=== PATIENT | female | born 1965 | race Caucasian/White ===

== ENCOUNTER 2021-09-01 11:11 | Outpatient (CLI) | payer SELFPAY ==
--- NOTE | 2021-09-01 11:14 | BI_ITS ---
MAMMOGRAPHY - BILATERAL SCREENING REASON FOR EXAM: Female, 56 years old. Routine annual screening examination. PERTINENT HISTORY: Non-contributory. TECHNIQUE: Digital bilateral breast poonam (3D mammographic acquisition) in the CC and MLO projections. 2-D mediolateral oblique (MLO) and craniocaudad (CC) views of both breasts were obtained. CAD: Full Field Digital Mammography with Computer Added Detection was performed. COMPARISON: No comparison mammograms available at this time. If any prior films become available, an addendum to this report can be generated. FINDINGS: Breast Composition: The breasts are extremely dense, which lowers the sensitivity of mammography. There are no dominant masses or suspicious calcifications. Small benign-appearing bilateral axillary lymph nodes. No other significant abnormalities are identified. BI/SCRN MAMM (CAD)W/POONAM BILAT IMPRESSION: Negative screening mammogram. Yearly followup mammogram recommended. (A) ASSESSMENT CATEGORY: BIRADS Category 2: Benign. A letter regarding these results will be sent to the patient by the facility within 30 days. Approximately 10% of breast cancers are not detected by mammography. A normal mammogram should not delay biopsy of a clinically suspicious abnormality. [id number] Electronically Signed: Doc Sena MD at 13:00 EDT ,
== END 2021-09-01 23:59 | disposition home or self-care (01) ==
LOC: OPBI 11:13
PROVIDERS: Referring Provider Obstetrics & Gynecology; Visit Provider Obstetrics & Gynecology
DX: Z12.31 Encounter for screening mammogram for malignant neoplasm of breast (principal)
CPT/HCPCS: 77063; 77067

== ENCOUNTER → 2022-10-26 | Outpatient (CLI) | payer SELFPAY ==
--- NOTE | 2022-10-26 13:45 | MRI_ITS ---
STUDY: MR PELVIS WITH T WITHOUT CONTRAST REASON FOR EXAM: Female, 57 years old. URETHRAL DIVERTICULA TECHNIQUE: Standardized fat and water weighted pulse sequences were obtained in all 3 orthogonal planes, pre-and post contrast administration. 12ml Clariscan via IV was administered for the contrast portion of the examination. COMPARISON: None. FINDINGS: Normal urinary bladder. The urethra is normal in appearance without solid or cystic mass. No fluid-filled outpouching/diverticulum identified. No dilated small bowel. No colon wall thickening demonstrated. There is no pelvic fluid. There is no pelvic mass lesion or lymphadenopathy. Uterus is normal in appearance with length measuring 8.9 cm. No endometrial mass. The bilateral adnexa are grossly unremarkable without demonstrable mass. Normal visualized pelvic arteries. No bone marrow edema. Normal abdominal wall. MRI/Pelvis W/WO Contrast IMPRESSION: Normal unenhanced and enhanced MRI of the pelvis. No demonstrable urethral diverticulum. Electronically Signed: Deny Boyce (Brooks), at 7:45 EDT Reading Location ID and State: / [place] , Service support ,
== END | disposition home or self-care (01) ==
LOC: MRI 13:11
PROVIDERS: PCP Family Medicine; Referring Provider Urology; Visit Provider Urology
DX: N36.1 Urethral diverticulum (principal)
CPT/HCPCS: 72197; A9575

== ENCOUNTER 2022-12-24 08:29 | Observation (INO) | payer SELFPAY ==
--- NOTE | 2022-12-20 09:10 | EKG12_ITS ---
Test Reason : PRE OP Blood Pressure : / mmHG Vent. Rate : 058 BPM Atrial Rate : 058 BPM P-R Int : 138 ms QRS Dur : 088 ms QT Int : 448 ms P-R-T Axes : 044 -26 024 degrees QTc Int : 439 ms Sinus bradycardia Possible Left atrial enlargement Borderline ECG Confirmed by SYDNI BELCHER, LETHA ([id number]), market editor CHADD CRANE ([id number]) on 12/20/2022 12:13:16 PM Referred By: Ladonna Martínez Confirmed By:LETHA TROY MD
[2022-12-20 10:12] LABS: Hemoglobin 13.3 g/dL (12.0-15.0); Mean Corp Hgb Conc 31.7 g/dL (32-36); Mean Corpuscular Hgb 29.5 pg (27.0-32.0); Mean Corpuscular Volume 93.1 fL (81-99); Mean Platelet Vol. 11.4 fl (6.2-12.0); Platelet Count 241 K/mm3 (150-450); RBC Distribution Width CV 14.2 % (11.6-14.6); RBC Distribution Width SD 48.3 fl (35.1-43.9); Red Blood Count 4.51 M/mm3 (4.2-5.4); White Blood Count 5.2 K/mm3 (4.4-11.0)
[2022-12-20 10:27] LABS: Internal QC Validated? YES +Cl - CLEAR BKGD; Pregnancy, Urine Negative Negative
[2022-12-20 10:48] LABS: Magnesium 2.3 mg/dL (1.6-2.6)
[2022-12-24] VITALS (12 sets, daily range): BP systolic 82–134; BP diastolic 58–87; PULSE 65–78; RESP 12–18; TEMP 36.1–36.7; O2SAT 97–100; BMI 24.0
[2022-12-24 06:07] LABS: Internal QC Validated? YES +Cl - CLEAR BKGD; Pregnancy, Urine Negative Negative
[2022-12-24] MEDS: Lactated Ringers 1,000 ML 40 ML IV ×3 (06:10→11:15)
[2022-12-24] MEDS: Magnesium 1 GM over 15 mins IV (06:11)
[2022-12-24] MEDS: Acetaminophen 500 MG Tablet 1000 MG PO (06:12)
[2022-12-24] MEDS: Celecoxib 200 MG Capsule 400 MG PO (06:12)
[2022-12-24] MEDS: dexAMETHasone 4 MG/ML Vial 8 MG IV (06:13)
[2022-12-24] MEDS: Gabapentin 600 MG Tablet PO (06:13)
--- NOTE | 2022-12-24 07:15 | PCM.HP.BLA ---
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: No Is patient in pain?: No Allergies albuterol Adverse Reaction (Verified 12/15/22 08:51) Otherdemeral Adverse Reaction (Uncoded 12/10/22 10:04) Other Medications cholecalciferol (vitamin D3) 50 mcg (2,000 unit) capsule 50 mcg PO DAILY 09/22/22 [History Confirmed 12/15/22] coenzyme Q10 75 mg capsule (Ultra CoQ10) 75 mg PO DAILY 09/22/22 [History Confirmed 12/15/22] lactobacillus combination no.9 4 billion cell capsule (Adult 50 Plus Probiotic) 4,000 mmu cells PO DAILY 09/22/22 [History Confirmed 12/15/22] estradiol 0.01% (0.1 mg/gram) vaginal cream vaginal 12/10/22 [History Confirmed 12/15/22] Post menopausal: No Patient : No : No PFSH Medical History Anemia Migraine headache Non-smoker Wears glasses Surgical History S/P colonoscopy with polypectomy [place] teeth extracted Family History Mother Colon cancerFather Diabetes Social History Smoking Status: Never smoker alcohol intake: never substance use type: does not use caffeine: Yes what type of physical activity do you participate in: none additional social history: - Mo HPI pre op, appt albertina/Concepcion after Details: DAPHNEY CARTER is a 57 year old who presents for pre-op exam.She has the complaint of vaginal prolapse symptoms. She has had 5 vaginal deliveries. She feels uncomfortable at times when she is active. She does not have bladder incontinence at this time. She does strain some when having a bowel movement. She and her are interested in surgical and non-surgical options. She is 57 and still having monthly menses. Her twin sister is also still having menses. MRI showed a 8.9 cm uterus and normal ovaries. She had a normal EMB. She wants to keep her ovaries in place unless there is any masses or lesions seen. History 5 Elective abortions Hx Para 5 Spontaneous abortions Hx # Term Pregnancies Ectopic pregnancies Hx # Pregnancies Multiple births # of living children Past Pregnancies Del. Date Name GA/Weeks Outcome Route Bth Weight Gen Labor Lgth Anesthesia Del Locatn Provider FOB Unknown Janeth Unknown Jose R Unknown Gordan Unknown Guillermo Unknown Leighann ROS Const ROS Unobtainable: All systems reviewed & are unremarkable except as noted in H Resp Resp: Reports system reviewed and no additional complaints, except as documented; Denies cough GI GI: Reports as per HPI Psych Psych: Reports system reviewed and no additional complaints, except as documented Exam Const General: cooperative, healthy appearing, comfortable and no acute distress Resp Effort & Inspection: normal respiratory effort Skin General: no rashes or lesions noted Psych Appearance: grossly normal Speech and Movement: speech and movement normal Coding Level of Care Code Off vis,est,level 4 Diagnoses Abnormal uterine bleeding N93.9 Cystocele Pelvic organ prolapse quantification stage 2 rectocele N81.6 Assessment and Plan Assessment and Plan (1) Abnormal uterine bleeding: Status: Acute (2) Cystocele: Status: Acute (3) Pelvic organ prolapse quantification stage 2 rectocele: Status: Acute Plan After discussing the patient's diagnosis and treatment plan options, patient wishes to proceed with surgical management. I have discussed with the patient the risks, benefits, and alternatives of the procedure which include but are not limited to risks of anesthesia, bleeding, infection, possible damage to bowel, bladder, or surrounding vasculature which could lead to additional surgery to evaluate any complications. Patient agrees to procedure and wishes to proceed. ACOG/uptodate references given for additional information regarding procedure. plan for total vaginal hysterectomy (keep ovaries if possible). She will have repair with Dr. Javier following the hysterectomy.
--- NOTE | 2022-12-24 07:18 | DCINST_ITS ---
Discharge Instructions Diet Discharge Diet: No restrictions Activity Discharge Activity: Return to Normal Activity, May Not Drive (while taking narcotic pain medications.) and May Shower May resume sexual activity in: 6-8 weeks Dressing / Incision Call your doctor if your incision/area has: Continuous Slow Oozing, Sudden Increased Bleeding, Increased Pain/ Swelling, Increased Redness and Foul Smelling Discharge Call your doctor if you observe: Fever of 101 or Higher, Inability to urinate, Inability to have a bowel movement and Using more than 1 pad per hour Follow Up Care Please Follow Up With: Ladonna Martínez DO Test Results: Test results from this visit will be discussed in further detail at your follow- up appointment, if applicable. Discharge Plan Admission Attending Provider: Ladonna Martínez Primary Care Provider: Wayne Valdes Consulting Providers: Farzana Javier Discharge Orders/Prescriptions Prescriptions: No Action Adult 50 Plus Probiotic 4 billion cell capsule 4,000 mmu cells PO DAILY Rx Instructions: administer with a meal Ultra CoQ10 75 mg capsule 75 mg PO DAILY cholecalciferol (vitamin D3) 50 mcg (2,000 unit) capsule 50 mcg PO DAILY estradiol 0.01 % (0.1 mg/gram) cream VAGINAL Patient Comments: insert 1 gram vaginally three times a week BEFORE BEDTIME Other Ambulatory Orders: 12 Lead EKG (Routine) Timeframe: 20221220 [facility] Ordered By: Dr. Ladonna Martínez Referrals / Follow Up: Wayne Valdes DO [Primary Care Provider] - Disposition Disposition (needs filled in before D/C Order can be placed): Home, Self Care
--- NOTE | 2022-12-24 07:30 | HYST_PTH ---
PATIENT: DAPHNEY CARTER LOC: MS3 U#:[id number] AGE/SX: 57/F ROOM: [facility] [place] RE12/24/[address]: Dr. Ladonna Martínez DO : 1965 BED: 1 DIS: 12/25/2022 SPEC #: [id number] RECD: 12/24/22 11:34 STATUS: LUCIANA THOMAS #: [id number] ALEX: 12/24/22 07:[address]: Ladonna Martínez DEPT: SURGICAL PATHOLOGY RECD BY: Olya Silva ENTERED: 12/24/22 11:59 SP TYPE: HYSTERECT OTHR DR: DO Dr. Farzana Shen MD Tissues: Uterus, NOS Procedures: Surgery Specimen Level V HEADER OPERATION: ERAS, total vaginal hysterectomy, right salpingectomy, cysto PRE-OP DIAGNOSIS: Abnormal uterine bleeding, cystocele, pelvic organ prolapse TISSUE SUBMITTED: Uterus, cervix, right fallopian tube MICROSCOPIC DIAGNOSIS Uterus, cervix, right fallopian tube, vaginal hysterectomy and right salpingectomy: Cervix - chronic inflammation. Endometrium - proliferative endometrium. Myometrium - adenomyosis. Right fallopian tube - no pathologic diagnosis. SJ:fatuma 12/27/2022 MICROSCOPIC DESCRIPTION Slides are reviewed. GROSS DESCRIPTION Received in fixative is one container labeled with the patient's name and designated uterus, cervix, right fallopian tube. The specimen consists of a partially opened hysterectomy specimen consisting of uterus with cervix and detached fallopian tube. The uterus with cervix weighs 135 gm and measures 10.0 x 6.0 x 4.0 cm. The serosal surface is ragland, glistening. The ectocervical mucosa is unremarkable. The external os is oval and patulous in contour. The endocervical canal measures 3.5 cm in length and the endocervical mucosa is ragland, glistening and unremarkable. The triangular endometrial cavity measures 5.0 cm in length and up to 2.5 cm in width. The endometrium is ragland, glistening without any mass lesion and measures <0.1 cm in thickness. Sections of the uterine wall reveal focally ill-defined nodular masses suspicious for adenomyosis. The uterine wall measures up to 2.5 cm in thickness. The detached fallopian tube identified as right fallopian tube measures 3.5 cm in length and 0.6 cm in diameter. The fimbrial end is identified. Sections reveal unremarkable cut surfaces. Aging Department Supervisor sections are submitted in seven cassettes as follows: 1 - anterior cervix, 2 - posterior cervix, 3 & 4 - anterior uterine wall, 5 & 6 - posterior uterine wall, 7 - fallopian tube identified as right fallopian tube. / FLAQUITO:fatuma 12/24/2022 TC:5 CPT: 46726
[2022-12-24] MEDS: Cefotetan 2 GM in 0.9% NS 100 ML IV (07:38)
--- NOTE | 2022-12-24 08:23 | OP.PCM_ITS ---
Report of Operation Date of Procedure: 12/24/22 Pre-Operative Diagnosis: Incomplete uterovaginal prolapse Post-Operative Diagnosis: Same, intraoperative cystotomy Surgery/Procedure Performed:: Repair cystotomy, anterior and posterior repair, bilateral sacrospinous ligament fixation, cystoscopy with bilateral ureteral catheterization Surgeon: Farzana Javier Type of Anesthesia: General Admit VTE Documentation VTE Present on Admission: Yes VTE Mechan Device Prophylaxis: SCD's VTE Pharm Prophylaxis ordered?: Yes
--- NOTE | 2022-12-24 08:23 | PCM.OPRPT ---
Problems Associated Problem List Diagnoses (1) Cystocele: (2) Pelvic organ prolapse quantification stage 2 rectocele: Report of Operation Date of Procedure: 12/24/22 Pre-Operative Diagnosis: Incomplete uterovaginal prolapse Post-Operative Diagnosis: Same, intraoperative cystotomy Surgery/Procedure Performed:: posterior repair, cystoscopy with bilateral ureteral catheterization Surgeon: Farzana Javier Type of Anesthesia: General Description of Procedure: The patient is a 57-year-old female with pelvic organ prolapse who presents for surgical intervention for this as well as abnormal uterine bleeding. Informed consent was obtained. The patient was taken to the operating room and placed on the operating room table. Anesthesia monitored the head, neck, airway, IV access and vital signs throughout the case. Once anesthesia was appropriately administered, the patient was placed into exaggerated dorsolithotomy and Trendelenburg position. A Jean Baptiste catheter was inserted and the balloon was inflated with 10 cc of normal saline. At this time Dr. Pérez proceeded with her portion of the procedure with a vaginal hysterectomy. There was an inadvertent midline cystotomy approximately 1 cm in length. At the time I arrived, Dr. Pérez had already isolated the injury and sutured it in a 2 layer closure. The cuff remained open. I removed the Jean Baptiste with balloon deflation and inserted a cystoscope through the urethra under direct visualization into the urinary bladder. The cystotomy was visible in the midline just beyond the trigone closer to the right side but still in the midline. A 5 Greek whistle-tip catheter was used to gently cannulate each ureteral orifice and it was advanced to 20 cm on both sides without evidence of ureteral involvement in the injury. There were no other injuries identified at this time. The cystoscope was removed and the Jean Baptiste catheter was replaced. I imbricated her repair with a 2-0 Vicryl running suture. At this time the cuff line was closed per Dr. Pérez. Attention was then turned towards the prolapse repair. The posterior submucosa was injected with vasopressin for hydrostatic dissection and hemostatic control. A midline incision was made and sharp and blunt dissection was performed bilaterally until the rectovaginal fascia was identified. An attempt was made to dissect towards the ischial spines, but her support was very good on both sides and there was no evidence of remaining vault prolapse. She began to have more bleeding and the decision was made to abort sacrospinous ligament fixation. I continued on with the repair of the rectocele with a 2 layer closure with interrupted 2-0 Vicryl suture. A perineoplasty was performed as part of this repair. After the fascia was brought together, the mucosa was closed with running interlocking 2-0 Vicryl. The Jean Baptiste catheter was then removed and the cystourethroscopy was performed. The left ureteral orifice was then intubated with a 5 Greek whistle-tip catheter and advanced easily to 20 cm. On the right side the whistle-tip would no longer advance beyond 1 cm. The right sided cuff sutures were taken down and the cystoscopy was repeated with easy advancement of the whistle-tip through the right ureter into the renal pelvis. The whistle-tip catheter was then left in place. Good output was visualized from the end of the whistle-tip catheter. At this time the cuff closure was performed with the Jean Baptiste catheter and the whistle-tip catheter both in place. The whistle-tip catheter was easily advanced and retreated without evidence of tension and fluid was seen from the end of the catheter. Following closure of the cuff, the whistle-tip catheter was removed, and the vagina was packed with Premarin cream and vaginal packing. Grafts/Implants Used: none Admit VTE Documentation VTE Present on Admission: Yes VTE Mechan Device Prophylaxis: SCD's VTE Pharm Prophylaxis ordered?: Yes
--- NOTE | 2022-12-24 08:31 | DCINST_ITS ---
Discharge Instructions Diet Discharge Diet: No restrictions Activity Discharge Activity: May Shower (No tub bathing, hot tubs or swimming) May resume sexual activity in: 8 weeks Lifting Restrictions: No lifting over 5 pounds Additional Activity Instructions:: No strenuous activity, exercise, vacuuming Dressing / Incision Call your doctor if your incision/area has: Continuous Slow Oozing, Sudden Increased Bleeding, Increased Pain/ Swelling, Increased Redness and Foul Smelling Discharge Call your doctor if you observe: Fever of 101 or Higher, Inability to urinate, Inability to have a bowel movement and Using more than 1 pad per hour Follow Up Care Please Follow Up With: Ladonna Martínez DO When: With Dr. Javier, the office will call to make follow-up arrangements Test Results: Test results from this visit will be discussed in further detail at your follow- up appointment, if applicable. Discharge Plan Admission Admit Date/Time: 12/24/22 08:29 Attending Provider: Ladonna Martínez Primary Care Provider: Wayne Valdes Consulting Providers: Farzana Javier Instructions Patient Instructions: Urinary Catheter Bag Empty Clean, Jean Baptiste Catheter Female Ch Discharge Orders/Prescriptions Prescriptions: New oxycodone-acetaminophen [Percocet] 5-325 mg tablet 1 tab PO Q8H PRN (Reason: pain) 7 Days Qty: 20 0RF cephalexin [cephalexin] 500 mg capsule 500 mg PO Q12 3 Days Qty: 6 0RF naproxen 500 mg tablet 500 mg PO BID PRN (Reason: pain) Qty: 30 0RF Rx Instructions: take for pain that is 1-6/10 phenazopyridine [Pyridium] 200 mg tablet 200 mg PO TID PRN PRN (Reason: Bladder Spasms) 7 Days Qty: 30 1RF Continued Adult 50 Plus Probiotic 4 billion cell capsule 4,000 mmu cells PO DAILY Rx Instructions: administer with a meal Ultra CoQ10 75 mg capsule 75 mg PO DAILY cholecalciferol (vitamin D3) 50 mcg (2,000 unit) capsule 50 mcg PO DAILY estradiol 0.01 % (0.1 mg/gram) cream VAGINAL Patient Comments: insert 1 gram vaginally three times a week BEFORE BEDTIME Other Ambulatory Orders: 12 Lead EKG (Routine) Timeframe: 20221220 [facility] Ordered By: Dr. Ladonna Martínez Referrals / Follow Up: Wayne Valdes DO [Primary Care Provider] - Disposition Disposition (needs filled in before D/C Order can be placed): Home, Self Care
[2022-12-24] MEDS: Bupivacaine 0.25% 30 ML Vial (08:53)
[2022-12-24] MEDS: Estrogens,Conj. 1 Tube 1 DOSE (10:15)
[2022-12-24] MEDS: Ondansetron 4 MG/2 ML Vial IV ×2 (10:16→16:01)
[2022-12-24 11:12] LABS: Hemoglobin 13.3 g/dL (12.0-15.0); Mean Corp Hgb Conc 31.7 g/dL (32-36); Mean Corpuscular Hgb 29.6 pg (27.0-32.0); Mean Corpuscular Volume 93.5 fL (81-99); Mean Platelet Vol. 11.2 fl (6.2-12.0); Platelet Count 214 K/mm3 (150-450); RBC Distribution Width CV 14.4 % (11.6-14.6); RBC Distribution Width SD 49.1 fl (35.1-43.9); Red Blood Count 4.49 M/mm3 (4.2-5.4); White Blood Count 4.6 K/mm3 (4.4-11.0)
[2022-12-24 11:17] LABS: Anion Gap 9 (5-15); BUN 9 mg/dL (7-18); Calcium,Total 8.3 mg/dL (8.5-10.1); Chloride 109 mmol/L (98-107); EST Glomerular Filtration Rate 61 mL/min (>60); Est Glom Filt Rate - Afr Amer 73 mL/min (>60); Estimated Creatinine Clearance 50.73 ml/min; Glucose 174 mg/dL (74-106); Potassium 3.2 mmol/L (3.5-5.1); Sodium Level 142 mmol/L (136-145)
[2022-12-24 11:31] LABS: Bedside Glucose 181 mg/dL (74-106)
--- NOTE | 2022-12-24 11:33 | PCM.OPRPT ---
Problems Associated Problem List Diagnoses (1) Abnormal uterine bleeding: (2) Pelvic organ prolapse quantification stage 2 rectocele: Report of Operation Date of Procedure: 12/24/22 Pre-Operative Diagnosis: pelvic organ prolapse Post-Operative Diagnosis: pelvic organ prolapse Surgery/Procedure Performed:: total vaginal hysterectomy, right salpingectomy, repair of incidental cystotomy Description of Surgical Findings:: Normal uterus, cervix, fallopian tubes and ovaries, prolapsed bladder and rectocele present. Surgeon: Ladonna Martínez technical services analyst: Norma Lazo technical services analyst: Farzana Javier Type of Anesthesia: General Specimen's removed: uterus, cervix, right fallopian tube Estimated Blood Loss (mL): 100cc Description of Procedure: Patient was taken to the operating room and was placed under general anesthesia was prepped and draped in normal sterile fashion in the dorsal lithotomy position. Preoperative antibiotics and SCDs and Devine catheter was placed inside the bladder. Weighted speculum was placed in the vagina and the anterior and posterior lip of the cervix was grasped with 2 Tha clamps and circumferentially injected with dilute vasopressin. A circumferential incision was made with a scalpel and the posterior cul-de-sac was entered into sharply and a longneck speculum was placed. The anterior cul-de-sac was also dissected down and entered into sharply. At this point there was noted to be a small opening in the bladder as clear fluid returned and devine bulb was seen. The bladder was repaired first by using a 4-0 vicryl in a purse string pattern around the opening. A second imbricating layer was performed. The hysterectomy was continued by identifying the uterosacral ligaments. These were clamped cut and suture ligated bilaterally followed by the cardinal ligaments which were Clamped cut and suture ligated bilaterally with 0 Vicryl. The uterus serially descended and progressive bites were taken bilaterally up to the level of the utero-ovarian ligament bilaterally which was clamped transected and double ligated with 0 vicryl suture and 0 Vicryl free tie. Bilateral fallopian tubes and ovaries were well visualized and noted be within normal limits, however the left fa was used llopian tube was adherent to the left side wall and not removed. The right fallopian tube was grasped with a gaudencio clamp, cut and suture ligated to remove. an 0 vicryl free tie was used to creat hemostasis. Excellent hemostasis was noted. Posterior peritoneum and vaginal mucosa was run with a [address] Javier then came in and applied a 3rd layer of 4-0 vicryl to the bladder laceration. The vaginal cuff was then closed with interrupted fingure of 8, 0-vicryl suture. Excellent hemostasis was noted. Dr. Javier performed a cystoscopy and the bladder was noted to be water tight, however the right ureter was not freely flowing an whistle tip could not pass. A suture on the cuff was removed then replace and the whistle tip flowed, indicating ureteral patency. Dr. Javier then performed the remaining procedure dictated separately. . Admit VTE Documentation VTE Present on Admission: No VTE Mechan Device Prophylaxis: SCD's VTE Pharm Prophylaxis ordered?: No Multi Select Codes Urinary/Genital Urinary/Genital CPT Codes: 71108 TVH <250 gr uterus (right salpingectomy ,and cystotomy repair. )
[2022-12-24] MEDS: Cefazolin 1 GM/50 ML BAG IV ×2 (14:31→21:00)
[2022-12-24] MEDS: Dextrose 5%-Lactated Ringers 1,000 ML 100 ML IV (14:31)
[2022-12-24] MEDS: HYDROcodone Bitartrate/Apap 5/325 Tablet PO ×2 (21:00→22:21)
[2022-12-25 01:09] VITALS: BP 97/55; PULSE 72; RESP 16; TEMP 36.8; O2SAT 95
[2022-12-25] MEDS: Enoxaparin 40 MG/0.4 ML Syringe SC (04:14)
[2022-12-25] MEDS: HYDROcodone Bitartrate/Apap 5/325 Tablet PO (04:14)
[2022-12-25 04:26] VITALS: BP 96/65; PULSE 66; RESP 16; TEMP 36.4; O2SAT 96
[2022-12-25 06:58] LABS: Hematocrit 36.8 % (37-47); Hemoglobin 11.9 g/dL (12.0-15.0); Mean Corp Hgb Conc 32.3 g/dL (32-36); Mean Corpuscular Volume 92.7 fL (81-99); Mean Platelet Vol. 11.1 fl (6.2-12.0); Platelet Count 229 K/mm3 (150-450); RBC Distribution Width CV 14.6 % (11.6-14.6); Red Blood Count 3.97 M/mm3 (4.2-5.4); White Blood Count 10.1 K/mm3 (4.4-11.0)
[2022-12-25 07:36] LABS: Anion Gap 4 (5-15); BUN 6 mg/dL (7-18); BUN/Creat Ratio 9.1 RATIO (10-20); Calcium,Total 8.4 mg/dL (8.5-10.1); Chloride 111 mmol/L (98-107); Creatinine, Serum 0.66 mg/dL (0.55-1.02); EST Glomerular Filtration Rate 98 mL/min (>60); Est Glom Filt Rate - Afr Amer 119 mL/min (>60); Estimated Creatinine Clearance 76.86 ml/min; Glucose 93 mg/dL (74-106); Potassium 3.5 mmol/L (3.5-5.1); Sodium Level 141 mmol/L (136-145)
--- NOTE | 2022-12-25 08:10 | PCM.PN.OB ---
Subjective Subjective patient is sitting up in bed and appears comfortable. She states that she vomited one time last night but otherwise feels good. We discussed the bladder laceration and repair process and touched on follow up in a week with cystogram. She prefers to go home with the large devine bag and not a leg bag to avoid overfilling of the leg bag that could worsen the laceration repair. Objective Data Objective Data Vital Signs: Vital Signs Temp Pulse Resp BP Pulse Ox O2 Del Method O2 Flow Rate 97.6 F L 66 16 96/65 96 Room Air 2 12/25/22 04:12/25/22 04:12/25/22 04:12/25/22 04:12/25/22 04:12/25/22 04:12/24/22 16:12 Oxygen Flow Rate (L/min) 2 Oxygen Delivery Method Room Air Weight: 136 lb Body Mass Index (BMI) 24.0 Intake & Output: Intake and Output for Last 24 Hours 12/23/22 12/24/22 12/25/22 23:59 23:59 23:59 Intake Total 2360.33 / 2360.33 951.67 / 951.67 Output Total 3000 / 3000 1500 / 1500 Balance -639.67 / -639.67 -548.33 / -548.33 Lab / Micro Data 12/25/22 05:42 12/25/22 05:42 Labs: Laboratory Results - last 24 hr 12/24/22 10:55: WBC 4.6, RBC 4.49, Hgb 13.3, Hct 42.0, MCV 93.5, MCH 29.6, MCHC 31.7 L, RDW Std Deviation 49.1 H, RDW Coeff of Bayron 14.4, Plt Count 214, MPV 11.2, Sodium 142, Potassium 3.2 L, Chloride 109 H, Carbon Dioxide 24.0, Anion Gap 9, BUN 9, Creatinine 1.00, Estim Creat Clear Calc 50.73, Est GFR (MDRD) Af Amer 73, Est GFR (MDRD) Non-Af 61, BUN/Creatinine Ratio 9.0 L, Glucose 174 H, Calcium 8.3 L 12/24/22 11:12: POC Glucose 181 H 12/25/22 05:42: WBC 10.1, RBC 3.97 L, Hgb 11.9 L, Hct 36.8 L, MCV 92.7, MCH 30.0, MCHC 32.3, RDW Std Deviation 50.0 H, RDW Coeff of Bayron 14.6, Plt Count 229, MPV 11.1, Sodium 141, Potassium 3.5, Chloride 111 H, Carbon Dioxide 26.0, Anion Gap 4 L, BUN 6 L, Creatinine 0.66, Estim Creat Clear Calc 76.86, Est GFR (MDRD) Af Amer 119, Est GFR (MDRD) Non-Af 98, BUN/Creatinine Ratio 9.1 L, Glucose 93, Calcium 8.4 L ROS Constitutional Constitutional: Denies chills, fatigue, fever(s), poor appetite or weakness Cardiovascular Cardiovascular: Denies chest pain, dizziness, dyspnea, irregular heart rhythm, palpitations or rapid heart rate Respiratory/Chest Respiratory/Chest: Denies chest tightness, cough, dyspnea or breast pain Gastrointestinal Gastrointestinal: Denies abdominal pain, constipation or vomiting Genitourinary Genitourinary: Denies dysuria or flank pain Neurologic Neurologic: Denies abnormal movements, abnormal speech, dizziness, numbness or syncope Psychiatric Psychiatric: Denies anxiety, behavioral changes, change in appetite, confusion, depression or suicidal thoughts Physical Exam Const alert, oriented x3 and no apparent distress General Appearance: cooperative and comfortable Resp normal respiratory effort Cardio regular rate GI normal to inspection, nondistended, normoactive bowel sounds Palpation: soft Back/Spine no CVA tenderness and thoraco-lumbar ROM normal Extremity normal to inspection, no clubbing, cyanosis or edema, no calf tenderness and no pedal edema Psych mental status grossly normal, thought process normal, cooperative, affect normal, speech normal, activity/motor behavior normal, denies homicidal ideation and denies suicidal ideation Assessment & Plan (1) Cystocele: (2) Pelvic organ prolapse quantification stage 2 rectocele: PLAN: Plan patient is s/p total vaginal hysterectomy, right salpingectomy, cystotomy repair, POD 1 1. routine ERAS protocol postop care- increase ambulation, encourage oral intake and oral control of pain. scds for dvt prophylaxis, patient stable for discharge to home after sees Dr. Javier this am. They understand she is in surgery this morning.
[2022-12-25 08:23] VITALS: O2SAT 95
[2022-12-25 08:43] LABS: Bedside Glucose 72 mg/dL (74-106)
--- NOTE | 2022-12-25 09:20 | PCM.PN.GU ---
Subjective Subjective The patient is sitting up in a chair. Her nausea is significantly improved. She was having bladder spasms earlier and those are also improved. Objective Data Objective Data Vital Signs: Vital Signs Temp Pulse Resp BP Pulse Ox O2 Del Method O2 Flow Rate 97.6 F L 66 16 96/65 95 Room Air 2 12/25/22 04:26 12/25/22 04:26 12/25/22 04:12/25/22 04:12/25/22 08:23 12/25/22 08:23 12/24/22 16:12 Oxygen Flow Rate (L/min) 2 Oxygen Delivery Method Room Air Weight: 61.689 kg Body Mass Index (BMI) 24.0 Intake & Output: Intake and Output for Last 24 Hours 12/23/22 12/24/22 12/25/22 23:59 23:59 23:59 Intake Total 2360.33 / 2360.33 951.67 / 951.67 Output Total 3000 / 3000 1500 / 1500 Balance -639.67 / -639.67 -548.33 / -548.33 Lab / Micro Data 12/25/22 05:42 12/25/22 05:42 Labs: Laboratory Results - last 24 hr 12/24/22 05:56: POC Glucose 72 L 12/24/22 10:55: WBC 4.6, RBC 4.49, Hgb 13.3, Hct 42.0, MCV 93.5, MCH 29.6, MCHC 31.7 L, RDW Std Deviation 49.1 H, RDW Coeff of Bayron 14.4, Plt Count 214, MPV 11.2, Sodium 142, Potassium 3.2 L, Chloride 109 H, Carbon Dioxide 24.0, Anion Gap 9, BUN 9, Creatinine 1.00, Estim Creat Clear Calc 50.73, Est GFR (MDRD) Af Amer 73, Est GFR (MDRD) Non-Af 61, BUN/Creatinine Ratio 9.0 L, Glucose 174 H, Calcium 8.3 L 12/24/22 11:12: POC Glucose 181 H 12/25/22 05:42: WBC 10.1, RBC 3.97 L, Hgb 11.9 L, Hct 36.8 L, MCV 92.7, MCH 30.0, MCHC 32.3, RDW Std Deviation 50.0 H, RDW Coeff of Bayron 14.6, Plt Count 229, MPV 11.1, Sodium 141, Potassium 3.5, Chloride 111 H, Carbon Dioxide 26.0, Anion Gap 4 L, BUN 6 L, Creatinine 0.66, Estim Creat Clear Calc 76.86, Est GFR (MDRD) Af Amer 119, Est GFR (MDRD) Non-Af 98, BUN/Creatinine Ratio 9.1 L, Glucose 93, Calcium 8.4 L Physical Exam Narrative Alert, oriented, comfortable Jean Baptiste draining clear yellow urine SCDs in place Abdomen soft, nontender nondistended Vaginal packing was removed without incident Assessment & Plan Assessment/Plan (1) Abnormal uterine bleeding: (2) Cystocele: (3) Pelvic organ prolapse quantification stage 2 rectocele: PLAN: Plan Home with Jean Baptiste catheter to straight drain My office will make arrangements for cystogram at the end of next week with follow-up in the office
[2022-12-25 09:24] VITALS: BP 101/60; PULSE 60; RESP 18; TEMP 36.6; O2SAT 95
== END 2022-12-25 10:44 | disposition home or self-care (01) ==
LOC: SDC 10:43 → MS3 10:43
PROVIDERS: Anesthesiology; Admitting Provider Urology; PCP Family Medicine; Referring Provider Obstetrics & Gynecology; Visit Provider Obstetrics & Gynecology
PROC: (CPT 58260; principal; 2022-12-24 07:10)
DX: N81.2 Incomplete uterovaginal prolapse (principal); N93.9 Abnormal uterine and vaginal bleeding, unspecified; N32.89 Other specified disorders of bladder; N99.71 Accidental puncture and laceration of a genitourinary system organ or structure during a genitourinary system procedure; R11.0 Nausea; Y92.234 Operating room of hospital as the place of occurrence of the external cause; Z79.899 Other long term (current) drug therapy
CPT/HCPCS: 58262; 52005; 00944; 57250; 51860; 36415; 80048; 81025; 82962; 83735; 85027; 86850; 86900; 86901; 88307; 93005; 94668; 96361; 96365; 96366; 96372; 96375; 99221; J7120; C1758; G0378; J2405; J3475; Q9968

== ENCOUNTER → 2023-01-03 | Outpatient (CLI) | payer SELFPAY ==
--- NOTE | 2023-01-03 11:41 | RAD_ITS ---
CLINICAL HISTORY: Female, 57 years old. Bladder injury. PROCEDURE: Cystogram. FLUOROSCOPY TIME (if supplied): (34 seconds) minutes/seconds. 8.64 mGy. 5 images were obtained. 175 mL of contrast installed into the bladder in a retrograde fashion through the indwelling Jean Baptiste catheter.. The radiologist installed the contrast into the bladder. TECHNIQUE: (All elements of maximal sterile barrier technique followed, including US elements as applicable) The bladder was filled with contrast. A postvoid image was obtained. No evidence of bladder leak. RAD/Cystography min 3 Views IMPRESSION: No evidence of bladder leak. Electronically Signed: Doc Sena MD at 12:31 EDT ,
== END | disposition home or self-care (01) ==
PROVIDERS: PCP Family Medicine; Referring Provider Urology; Visit Provider Urology
DX: S37.20XA Unspecified injury of bladder, initial encounter (principal); X58.XXXA Exposure to other specified factors, initial encounter
CPT/HCPCS: 51600; 74430

== ENCOUNTER → 2024-02-24 | Outpatient (CLI) | payer SELFPAY ==
--- NOTE | 2024-02-24 11:52 | BI_ITS ---
MAMMOGRAPHY - BILATERAL SCREENING REASON FOR EXAM: Female, 58 years old. Routine annual screening examination. PERTINENT HISTORY: Non-contributory. TECHNIQUE: Digital bilateral breast poonam (3D mammographic acquisition) in the CC and MLO projections. 2-D mediolateral oblique (MLO) and craniocaudad (CC) views of both breasts were obtained. CAD: Full Field Digital Mammography with Computer Added Detection was performed. COMPARISON: Comparison is made with prior study September 01, 2021. FINDINGS: Breast Composition: The breasts are heterogeneously dense, which may obscure small masses. There are no dominant masses or suspicious calcifications. No other significant abnormalities are identified. There has been no significant change since the prior study. BI/SCRN MAMM (CAD)W/POONAM BILAT IMPRESSION: Stable bilateral screening mammogram. Yearly follow-up mammogram recommended. (A) ASSESSMENT CATEGORY: BIRADS Category 1: Negative. A letter regarding these results will be sent to the patient by the facility within 30 days. Approximately 10% of breast cancers are not detected by mammography. A normal mammogram should not delay biopsy of a clinically suspicious abnormality. [id number] Electronically Signed: Doc Sena MD at 13:56 EDT ,
== END | disposition home or self-care (01) ==
PROVIDERS: PCP Family Medicine; Referring Provider Obstetrics & Gynecology; Visit Provider Obstetrics & Gynecology
DX: Z12.31 Encounter for screening mammogram for malignant neoplasm of breast (principal)
CPT/HCPCS: 77063; 77067

== ENCOUNTER → 2025-02-25 | Outpatient (CLI) | payer SELFPAY ==
--- NOTE | 2025-02-25 10:00 | BI_ITS ---
EXAM: SCRN MAMM (CAD)W/POONAM BILAT DATE: 02/25/2025 CLINICAL HISTORY: F, Age 59 y/o , SCREEN FOR BREAST CANCER TECHNIQUE: Procedure Code: [id number] Modality: MG Procedure: SCRN MAMM (CAD)W/POONAM BILAT COMPARISON: Prior exam(s) dated 02/24/2024 and 09/01/2021. FINDINGS: TISSUE DENSITY: The breasts are heterogeneously dense, which may obscure small masses. Bilateral Breast Mammographic Findings: An 8 mm masslike density in the medial, far anterior aspect of the right breast is noted. Further workup is indicated. There are no suspicious masses, suspicious clustered microcalcifications, architectural distortion or secondary signs of malignancy identified in the left breast. A stable, 3 mm, well-circumscribed, isodense mass is seen in the superior outer, far posterior aspect of the left breast. Benign vascular calcifications and round microcalcifications are seen in both breasts. Stable nodular masslike densities are seen in both breasts. BI/SCRN MAMM (CAD)W/POONAM BILAT IMPRESSION: There is a masslike density in the medial, far anterior aspect of the right adis ast. Further workup is indicated. The patient should return for a rolled CC view and an LM view of the right elenita st as well as a spot compression CC view of the right breast density. An ultrasound may also be needed. OVERALL FINAL ASSESSMENT BI-RADS 0: INCOMPLETE - NEED ADDITIONAL IMAGING EVALUATION. RECOMMENDATION: Additional Views obtained/call backs Additional Recommendation none A letter with findings and recommendations will be mailed to the patient. Reading Location: [id number]
== END | disposition home or self-care (01) ==
PROVIDERS: Referring Provider Obstetrics & Gynecology; Visit Provider Obstetrics & Gynecology
DX: Z12.31 Encounter for screening mammogram for malignant neoplasm of breast (principal)
CPT/HCPCS: 77063; 77067

== ENCOUNTER → 2025-02-26 | Outpatient (CLI) | payer SELFPAY ==
--- NOTE | 2025-02-26 12:52 | US_ITS ---
EXAM: DIAG MAMM W/CAD, UNILAT; BREAST LIMITED UNILATERAL 02/26/2025 CLINICAL HISTORY: F, Age 59 y/o , ABN MAMM Palpable lump TECHNIQUE: Procedure Code: [id number]; USBRSTLIMIT Modality: MG; US Procedure: DIAG MAMM W/CAD, UNILAT; BREAST LIMITED UNILATERAL. COMPARISON: No prior studies. FINDINGS: TISSUE DENSITY: There are scattered areas of fibroglandular density. Unilateral Right Breast Mammographic Findings: No significant masses, calcifications or other abnormalities are identified. Because of the patient however complains of a palpable right breast lump, further evaluation with ultrasound in the area of concern was also performed. Sonographic evaluation of the right breast in the retroareolar region, at the area of concern shows only normal dense fibroglandular tissue. There is no suspicious shadowing solid lesion, architectural distortion or suspicious cluster of calcifications. There are minimally dilated retroareolar ducts noted. US/Breast Limited Unilateral IMPRESSION: No suspicious sonographic or mammographic findings OVERALL FINAL ASSESSMENT BI-RADS 1: NEGATIVE RECOMMENDATION: Routine annual follow-up in 1 Year Additional Recommendation none A letter with findings and recommendations will be mailed to the patient. Reading Location: [id number]
== END | disposition home or self-care (01) ==
PROVIDERS: Referring Provider Obstetrics & Gynecology; Visit Provider Obstetrics & Gynecology
DX: R92.8 Other abnormal and inconclusive findings on diagnostic imaging of breast (principal)
CPT/HCPCS: 76642; 77061; 77065; G0279